=== PATIENT | female | born 1965 | race Caucasian/White ===

== ENCOUNTER 2016-06-28 08:28 | Day surgery (SDC) | payer BC ==
[~2016-06-28 08:28] MED LIST: RINGERS SOLUTION,LACTATED 1,000 ML IV PRN
--- OUTSIDE RECORDS SUMMARY | 2016-06-28 08:31 | XMS REPORT | CCD ---
:1965 Author Name STEVEN LOVELL Address [address], [place] [phone] Care Team Providers Name Role Phone TANYA ZAMORA Attending Physician Unavailable Vital Signs Unknown. Allergies Unknown. Procedures Unknown. History of Immunizations Unknown. Problems Unknown. Results CBC Test Name Code Test Result Test Units Test Date/Time WBC 6690-2 5.3000 K/uL 10/16/2013 08:38 RBC 789-8 4.0200 M/uL 10/16/2013 08:38 HEMOGLOBIN 718-7 12.1000 g/dL 10/16/2013 08:38 HEMATOCRIT 37.0000 % 10/16/2013 08:38 MCV 92.0000 fL 10/16/2013 08:38 MCH 30.1000 PG 10/16/2013 08:38 MCHC 32.7000 G/DL 10/16/2013 08:38 RDW-SD 42.3000 FL 10/16/2013 08:38 RDW-CV 12.8000 % 10/16/2013 08:38 PLATELETS 257.0000 K/UL 10/16/2013 08:38 MPV 9.8000 FL 10/16/2013 08:38 %GRAN 64.8000 % 10/16/2013 08:38 %LYMPH 27.1000 % 10/16/2013 08:38 %MONO 7.0000 % 10/16/2013 08:38 %EOS 0.9000 % 10/16/2013 08:38 %BASO 0.2000 % 10/16/2013 08:38 #GRAN 3.4400 K/UL 10/16/2013 08:38 #LYMPH 1.4400 K/UL 10/16/2013 08:38 #MONO 0.3700 K/UL 10/16/2013 08:38 #EOS 0.0500 K/UL 10/16/2013 08:38 #BASO 0.0100 K/UL 10/16/2013 08:38 SLIDE REVIEWED? NOT INDICATED N/A 10/16/2013 08:38 MANUAL DIFF NOT INDICATED N/A 10/16/2013 08:38 B12 LEVEL, SERUM Test Name Code Test Result Test Units Test Date/Time VITAMIN B12 242.0000 PG/ML 10/16/2013 08:38 TSH Test Name Code Test Result Test Units Test Date/Time TSH 3016-3 1.8860 uIU/ml 10/16/2013 08:38 COMPREHENSIVE METABOLIC PANEL Test Name Code Test Result Test Units Test Date/Time GLUCOSE 101.0000 mg/dL 10/16/2013 08:38 SODIUM 141.0000 mmol/L 10/16/2013 08:38 POTASSIUM 4.0000 mmol/L 10/16/2013 08:38 CHLORIDE 105.0000 mmol/L 10/16/2013 08:38 CO2 30.0000 mmol/L 10/16/2013 08:38 BUN 23.0000 mg/dL 10/16/2013 08:38 CREATININE 0.6000 mg/dL 10/16/2013 08:38 BUN/CREAT 38.3000 10/16/2013 08:38 CALCIUM 8.5000 mg/dL 10/16/2013 08:38 TOTAL BILI 0.7000 mg/dL 10/16/2013 08:38 TOTAL PROTEIN 6.8000 g/dL 10/16/2013 08:38 ALBUMIN 3.7000 g/dL 10/16/2013 08:38 A/G RATIO 1.2000 10/16/2013 08:38 ALKALINE PHOS 88.0000 IU/L 10/16/2013 08:38 AST/SGOT 25.0000 IU/L 10/16/2013 08:38 ALT/SGPT 44.0000 IU/L 10/16/2013 08:38 ANION GAP 10.2000 mmol/L 10/16/2013 08:38 AGE 48.0000 YEARS 10/16/2013 08:38 GFR 113.8900 ml/min 10/16/2013 08:38 T4 THYROXINE TOTAL Test Name Code Test Result Test Units Test Date/Time T4, TOTAL 5.8000 MCG/DL 10/16/2013 08:38 Medications Unknown. Medications Administered Unknown. Encounters Encounter Diagnosis Diagnosis Code Start Date PAIN IN LIMB 7295 10/16/2013 Social History Smoking Status Code Start Date End Date Never smoker [id number] Patient Decision Aids Unknown. Discharge Instructions You were admitted to [facility] on 10/16/2013 with a principle diagnosis of PAIN IN LIMB. You had the following tests done:VITAMIN B12T4, TOTAL You were discharged from [facility] on 10/16/2013. Should you have any questions prior to discharge, please contact a member of your healthcare team. If you have left the hospital and have any questions, please contact your primary care physician. Chief Complaint and Reason For Visit Unknown. Function Status Unknown. Plan of Care Diagnostic Test Pending Plan of Care Pending Diagnostic Test PROTEIN ELECTROPHORESIS, SERUM, [LOINC: 06713-5], 10/16/2013 T3, [LOINC: 3053-6], 10/16/2013 EVELIA, [LOINC: 8061-4], 10/16/2013 Referral/Transition of Care Unknown.
--- OUTSIDE RECORDS SUMMARY | 2016-06-28 08:31 | XMS REPORT | CCD ---
:1965 Author Name STEVEN LOVELL Address [address] Unavailable [place], [place] [phone] Care Team Providers Name Role Phone LAN SEGURA Attending Physician Unavailable Vital Signs Unknown or Not Available. Allergies Unknown or Not Available. Procedures Unknown or Not Available. History of Immunizations Unknown or Not Available. Problems Unknown or Not Available. Results POTASSIUM, SERUM OR PLASMA - Collect Date/Time: 04/09/2015 08:35 Test Name Code Test Result Test Units Test Ref Range POTASSIUM 4.2 mmol/L L=3.5 H=5.1 Active Medications Unknown or Not Available. Medications Administered During Visit Unknown or Not Available. Encounters Encounter Diagnosis Diagnosis Code Start Date Hypokalemia [id number] 04/09/2015 Social History Smoking Status Code Start Date End Date Never smoker [id number] Patient Decision Aids Unknown or Not Available. Discharge Instructions You were admitted to [facility] on 04/09/2015 with a principal diagnosis of Hypokalemia . You were discharged from [facility] on 04/09/2015. Should you have any questions prior to discharge, please contact a member of your healthcare team. If you have left the hospital and have any questions, please contact your primary care physician. Chief Complaint and Reason For Visit Unknown or Not Available. Function Status Unknown or Not Available. Plan of Care Unknown or Not Available. Referral/Transition of Care Unknown or Not Available.
--- OUTSIDE RECORDS SUMMARY | 2016-06-28 08:31 | XMS REPORT | CCD ---
:1965 Author Name STEVEN LOVELL Address [address], [place] [phone] Care Team Providers Name Role Phone LAN NICE Attending Physician Unavailable Vital Signs Unknown. Allergies Unknown. Procedures Unknown. History of Immunizations Unknown. Problems Unknown. Results SED RATE Test Name Code Test Result Test Units Test Date/Time SED RATE 33.0000 mm/HR 07/09/2013 11:53 HEPATIC FUNCTION PANEL Test Name Code Test Result Test Units Test Date/Time TOTAL BILI 0.3000 mg/dL 07/09/2013 11:53 DIRECT BILI 0.1000 mg/dL 07/09/2013 11:53 TOTAL PROTEIN 7.2000 g/dL 07/09/2013 11:53 ALBUMIN 3.8000 g/dL 07/09/2013 11:53 A/G RATIO 1.1000 07/09/2013 11:53 ALKALINE PHOS 131.0000 IU/L 07/09/2013 11:53 AST/SGOT 18.0000 IU/L 07/09/2013 11:53 ALT/SGPT 32.0000 IU/L 07/09/2013 11:53 Medications Unknown. Medications Administered Unknown. Encounters Encounter Diagnosis Diagnosis Code Start Date JOINT PAIN-UNSPEC 41495 07/09/2013 Social History Smoking Status Code Start Date End Date Never smoker [id number] Patient Decision Aids Unknown. Instructions You were admitted to [facility] on 07/09/2013 with a principle diagnosis of JOINT PAIN-UNSPEC. You were discharged from [facility] on 07/09/2013. Should you have any questions prior to discharge, please contact a member of your healthcare team. If you have left the hospital and have any questions, please contact your primary care physician. Chief Complaint and Reason For Visit Unknown. Function Status Unknown. Plan of Care Unknown. Referral/Transition of Care Unknown.
--- OUTSIDE RECORDS SUMMARY | 2016-06-28 08:31 | XMS REPORT | Continuity of Care Document ---
:1965 Demographics Phone Unavailable Preferred Language Unknown Marital Status Unknown Jain Affiliation Unknown Race Unknown Ethnic Group Unknown Author Organization [facility] ([facility]) [place] [address] Phone [phone] Care Team Providers Name Role Phone Unavailable Primary Care Provider Unavailable Source Comments This disclosure is being made pursuant to the Care Everywhere program, applicable federal and state laws, and may not contain all informaitonavailable regarding this patient.[facility] ([facility]) Active Allergies and Adverse Reactions Not on File Current Medications Not on file Active Problems Not on file Social History Tobacco Use Types Packs/Day Years Used Date Never Assessed Plan of Care Health Maintenance Due Date Last Done Comments Hepatitis B Vaccine (1 of 3 - Primary Series) 1965 Tdap Vaccine 1977 Lipid Disorder Screening 1984 MMR Vaccine 1984 Td Vaccine 1984 Cervical Cancer Screening 1996 Mammogram 2006 Influenza Vaccine: Seasonal (#1) 12/20/2015 Colonoscopy 03/19/2016 Results from Last 3 Months Not on file
--- OUTSIDE RECORDS SUMMARY | 2016-06-28 08:32 | XMS REPORT | CCD ---
:1965 Author Name STEVEN LOVELL Address [address], [place] [phone] Care Team Providers Name Role Phone LAN SEGURA Attending Physician Unavailable Vital Signs Unknown or Not Available. Allergies Unknown or Not Available. Procedures Procedure Code Procedure Type Date TSH 14856934 SNOMED CT 04/06/2016 LIPID PANEL [id number] SNOMED [address] 04/06/2016 History of Immunizations Unknown or Not Available. Problems Unknown or Not Available. Results COMPREHENSIVE METABOLIC PANEL - Collect Date/Time: 04/06/2016 09:41 Test Name Code Test Result Test Units Test Ref Range GLUCOSE 93 mg/dL L=74 H=106 SODIUM 145 mmol/L L=136 H=145 POTASSIUM 4.0 mmol/L L=3.5 H=5.1 CHLORIDE 106 mmol/L L=98 H=107 CO2 29 mmol/L L=21 H=32 BUN 15.0 mg/dL L=7.0 H=18.0 CREATININE 0.6 mg/dL L=0.6 H=1.0 BUN/CREAT 25.0 L=7.6 H=21.2 CALCIUM 9.1 mg/dL L=8.6 H=10.1 TOTAL BILI 1.1 mg/dL L=0.2 H=1.0 TOTAL PROTEIN 7.4 g/dL L=6.4 H=8.2 ALBUMIN 4.0 g/dL L=3.4 H=5.0 A/G RATIO 1.2 ALKALINE PHOS 79 IU/L L=50 H=136 AST/SGOT 19 IU/L L=15 H=37 ALT/SGPT 24 IU/L L=12 H=78 ANION GAP 14.0 mmol/L L=7.0 H=16.0 AGE 51 YEARS GFR 112.47 ml/min LIPID PANEL - Collect Date/Time: 04/06/2016 09:41 Test Name Code Test Result Test Units Test Ref Range CHOLESTEROL 2093-3 145 mg/dL L=0 H=200 TRIGLYCERIDES 2571-8 48 mg/dL L=0 H=200 HDL 2085-9 51 mg/dL L=40 H=60 LDL 2089-1 84 mg/dL L=0 H=160 CHOL/HDL 9830-1 2.8 L=0.0 H=6.7 TSH - Collect Date/Time: 04/06/2016 09:41 Test Name Code Test Result Test Units Test Ref Range TSH 3016-3 0.873 uIU/ml L=0.360 H=3.740 CBC W/DIFF - Collect Date/Time: 04/06/2016 09:41 Test Name Code Test Result Test Units Test Ref Range WBC 6690-2 5.4 K/uL L=3.2 H=10.0 RBC 789-8 4.78 M/uL L=4.00 H=5.20 HEMOGLOBIN 718-7 14.0 g/dL L=12.1 H=15.6 HEMATOCRIT 41.9 % L=35.0 H=47.0 MCV 87.7 fL L=81.0 H=101 MCH 29.3 PG L=26.0 H=38.0 MCHC 33.4 G/DL L=31.0 H=37.0 RDW-SD 39.7 FL L=37.0 H=54.0 RDW-CV 12.4 % L=11.0 H=16.0 PLATELETS 777-3 211 K/UL L=140 H=380 MPV 9.9 FL L=9.0 H=13.0 %GRAN 55.0 % L=0.0 H=75.0 %LYMPH 34.9 % L=0.0 H=50.0 %MONO 8.7 % L=0.0 H=14.0 %EOS 0.4 % L=0.0 H=6.0 %BASO 0.6 % L=0.0 H=1.0 #GRAN 2.96 K/UL L=1.80 H=7.80 #LYMPH 1.88 K/UL L=0.30 H=4.00 #MONO 0.47 K/UL L=0.00 H=0.70 #EOS 0.02 K/UL L=0.00 H=0.40 #BASO 0.03 K/UL L=0.00 H=0.10 SLIDE REVIEWED? NOT INDICATED N/A MANUAL DIFF NOT INDICATED N/A Active Medications Unknown or Not Available. Medications Administered During Visit Unknown or Not Available. Encounters Encounter Diagnosis Diagnosis Code Start Date Fatigue [id number] 04/06/2016 Social History Smoking Status Code Start Date End Date Never smoker [id number] Patient Decision Aids Unknown or Not Available. Discharge Instructions You were admitted to [facility] on 04/06/2016 09:29 with a principal diagnosis of Other fatigue You had the following tests done:CBC W/DIFFCOMPREHENSIVE METABOLIC PANELLIPID PANELTSH You were discharged from [facility] on 04/06/2016 09:29 Should you have any questions prior to [...]
[2016-06-28] MEDS ORDERED: RINGERS SOLUTION,LACTATED 1,000 ML IV ONE ×4 (09:02→16:25)
[2016-06-28 18:36] VITALS: BP 110/62
--- NOTE | 2016-06-29 09:13 | OR ---
Operative Report - Dictated Report Narrative: OPERATIVE REPORT (This is the FIRST of two colonoscopies on this day) DATE OF OPERATION: 06/28/2016 PREOPERATIVE DIAGNOSIS: No prior dedicated colon studies POSTOPERATIVE DIAGNOSIS: Poor prep, incomplete/aborted exam OPERATION: Attempted Colonoscopy SURGEON: Gregory Dhillon MD ANESTHESIA: KYLIE Souza CRNA INDICATIONS FOR PROCEDURE: The patient is a 51-year-old female referred by Dr Oneill for initial colon screening. There is no family history of colon cancer. The patient reports very irregular bowel habit. FINDINGS: Inadequate prep for diagnostic exam NARRATIVE OF PROCEDURE: The patient was identified in the holding area, and prior to the administration of anesthetic, a multidisciplinary timeout was observed. With the patient in the left lateral position and after the administration of intravenous sedation, the perineum was inspected. There was no evidence of pilonidal disease or skin breakdown. The external appearance of the anus was normal. Sphincter tone was good. The flexible fiberoptic colonoscope was inserted into the rectum which was insufflated with air. Immediately apparent was a large amount of liquid and particulate stool coating the rectum. This was lavaged and suctioned until the scope could be advanced proximally. The scope was gradually advanced to approximately 60 cm through a very redundant colon. It was apparent that a diagnostic quality exam could not be accomplished due to the amount of residual stool. The scope was therefore gradually withdrawn to the level of the rectum. As much insufflated air as possible was removed. The scope was withdrawn from the patient and the procedure terminated. The patient tolerated the anesthetic and procedure well without complication and was transferred back to the ambulatory surgery area awake and in stable condition. The patient will be given an additional Suprep prep kit, then kept at NPO status , and be returned for colonoscopy later today Reviewed and electronically signed
--- NOTE | 2016-06-29 10:14 | OR ---
Operative Report - Dictated Report Narrative: OPERATIVE REPORT (This is the SECOND of two colonoscopy reports on this date ) DATE OF OPERATION: 06/28/2016 PREOPERATIVE DIAGNOSIS: No prior dedicated colon studies. Incomplete exam earlier today due to poor prep POSTOPERATIVE DIAGNOSIS: 0.5 cm polyp at 15 cm. (Pathology pending) Very redundant colon with exam accomplished only to 160 cm length of scope OPERATION: Colonoscopy to 160 cm. Snare polypectomy at 15 cm SURGEON: Gregory Dhillon MD ANESTHESIA: KYLIE Souza CRNA INDICATIONS FOR PROCEDURE: The patient is a 51-year-old female referred for initial colon screening by Dr Oneill. The patient underwent a usual Suprep colon preparation, however when brought for exam this morning was found to be inadequately prepped for diagnostic exam. She has had administration of an additional dose of Suprep, has been kept nothing by mouth for suitable time, and is brought for repeat exam. FINDINGS: Adequate prep. 0.5 cm polyp at 15 cm (pathology pending). Very redundant and capacious colon with exam only accomplished to the full 160 cm length of examining scope. NARRATIVE OF PROCEDURE: The patient was identified in the holding area, and prior to the administration of anesthetic, a multidisciplinary timeout was observed. With the patient in the left lateral position and after the administration of intravenous sedation, the perineum was inspected. There was no evidence of pilonidal disease or skin breakdown. The external appearance of the anus was normal. Sphincter tone was good. The flexible fiberoptic colonoscope was inserted into the rectum which was insufflated with air. The rectal mucosa and submucosal vascular pattern appeared normal, the prep was seen to be sufficient for diagnostic purposes although there was some residual liquid. At 15 cm a 0.5 cm polyp was encountered this was removed with the cautery snare and submitted to pathology. The site was seen to be complete and hemostatic. The scope was advanced through a very tortuous and capacious colon to the full 160 cm length of the colonoscope. At this juncture a long stretch of normal-appearing colon was visible proximally, however even by palpation it could not be determined whether this was the proximal transverse colon or ascending colon. The scope was withdrawn and readvanced with the use of standard reduction maneuvers and external manual compression on the abdomen, however after multiple attempts further proximal progress could not be accomplished. The scope was then slowly withdrawn in a circular fashion so that all aspects of colonic mucosa distal to this level were inspected. The colon was extremely redundant and capacious. The haustral architecture appeared well preserved throughout with no evidence of external compression. The mucosa and submucosal vascular pattern appeared normal, specifically there was no gross evidence to suggest colitis or inflammatory bowel disease and no AV malformations were seen. No diverticulosis was demonstrated. Aside from the polyp at 15 cm, no additional polyps were encountered. The scope was gradually withdrawn to the level of the rectum. As much insufflated air as possible was removed. The scope was withdrawn from the patient and the procedure terminated. The patient tolerated the anesthetic and procedure well without complication and was transferred back to the ambulatory surgery area awake and in stable condition. The patient remained stable throughout a period of postoperative observation. She denied abdominal discomfort, was able to tolerate by mouth intake, and was up without assistance. I shared the operative findings with the patient and she was given copies of the photographs which appear in the medical record. She was discharged home with instructions not to engage in hazardous activity today, but may resume normal activity tomorrow, and advance diet as tolerated. She is to continue those medications as listed in the history and physical exam. I made arrangements to contact her with the biopsy reports and will make additional recommendations for treatment and follow-up based upon those results. ADDENDUM: I explained that because the proximal colon was not directly visualized, she should, after healing of the polypectomy site, undergo a completion barium enema to complete the evaluation of the proximal colon Reviewed and electronically signed
== END 2016-06-28 08:29 | disposition home or self-care (01) ==
LOC: AMB 08:28
PROVIDERS: ATTEND Surgery
PROC: 0DJD8ZZ Inspection of Lower Intestinal Tract, Via Natural or Artificial Opening Endoscopic (ICD-10-PCS; 2016-06-28)
PROC: 0DBE8ZX Excision of Large Intestine, Via Natural or Artificial Opening Endoscopic, Diagnostic (ICD-10-PCS; principal; 2016-06-28 10:00)
DX: Z12.11 Encounter for screening for malignant neoplasm of colon (principal); K63.5 Polyp of colon; I10 Essential (primary) hypertension; Z68.33 Body mass index [BMI] 33.0-33.9, adult

== ENCOUNTER 2016-09-12 07:53 | Day surgery (SDC) | payer BC ==
--- OUTSIDE RECORDS SUMMARY | 2016-09-12 07:56 | XMS REPORT | Continuity of Care Document ---
:1965 Demographics Phone Unavailable Preferred Language Unknown Marital Status Unknown Quaker Affiliation Unknown Race Unknown Ethnic Group Unknown Author Organization [facility] ([facility]) [place] [address] Phone [phone] Care Team Providers Name Role Phone Unavailable Primary Care Provider Unavailable Source Comments This disclosure is being made pursuant to the Care Everywhere program, applicable federal and state laws, and may not contain all informaitonavailable regarding this patient.[facility] ([facility]) Active Allergies and Adverse Reactions Not on [...]
--- OUTSIDE RECORDS SUMMARY | 2016-09-12 07:56 | XMS REPORT | CCD ---
:1965 Author Name STEVEN LOVELL Address [address] [facility] [place] [address] Care Team Providers Name Role Phone NAKUL KELLY Attending Physician Unavailable Allergies Unknown or Not Available. Active Medications Unknown or Not Available. Problems Unknown or Not Available. Procedures Procedure Code Procedure Type Date CULTURE ANTIGEN BACKUP [id number] SNOMED CT 08/26/2016 Results CULTURE ANTIGEN BACKUP - Collect Date/Time: 08/26/2016 11:27 Test Name Code Test Result Test Units Test Ref Range ON TREATMENT? 585-0 UNKNOWN N/A NOTIFY ED 585-0 NO N/A Encounters Encounter Diagnosis Diagnosis Code Start Date Acute pharyngitis [id number] 08/26/2016 Function Status Unknown or Not Available. History of Immunizations Unknown or Not Available. Plan of Treatment Unknown or Not Available. Social History Smoking Status Code Start Date End Date Never smoker [id number] Vital Signs Unknown or Not Available. Function Status Unknown or Not Available. Goals Unknown or Not Available. ASSESSMENTS Unknown or Not Available. Health Concerns Section Unknown or Not Available.
[2016-09-12] MEDS ORDERED: RINGERS SOLUTION,LACTATED 1,000 ML IV ONE (08:16)
[2016-09-12 08:34] LABS: Hematocrit 40.5 % (37.0-47.0); Mean Cell Volume 92.7 fl (78-100); Mean Corpuscular Hemoglobin 29.7 pg (27-31); Mean Corpuscular Hgb Conc 32.1 g/dl (32-36); Mean Platelet Volume 9.5 fl (6.0-9.5); Neutrophil # 4.4 K/mm3 (1.3-6.0); Platelet Count 218 K/mm3 (150-450); Red Blood Count 4.37 M/mm3 (4.2-5.4); Red Cell Distribution Width 13.5 % (11.5-14.0); White Blood Count 6.8 K/mm3 (4.0-10.5)
[2016-09-12] MEDS ORDERED: IBUPROFEN 600 MG TABLET PO PRN (09:32)
[2016-09-12] MEDS ORDERED: oxyCODONE HCL/ACETAMINOPHEN 1 TAB TABLET PO PRN (09:32)
--- NOTE | 2016-09-12 09:49 | OR ---
Operative Report - Dictated Report Narrative: Operative Report 09/12/16 Hysteroscopy Preoperative Diagnosis: Postmenopausal Bleeding Postoperative Diagnosis: Postmenopausal Bleeding, Cervical Stenosis Procedure: Hysteroscopy Surgeon: Charito Liu M.D. Anesthesia: Uday Cabral CRNA, IV sedation Findings: Unable to pass uterine sound due to cervical stenosis. Unable to perform dilatation and curettage due to inability to fully assess the cavity. The hysteroscope was to the extreme left of the patient and only one ostia could be visualized. Therefore, a full assessment of the cavity could not be made to ensure curettage would be safe. Fluids: 150 ml EBL: Minimal Drains: None Complications: None Condition: Stable Pathology: None Procedure: The patient was taken to the operating room with IV fluids running. She was placed in the dorsal lithotomy position after anesthesia was induced. A bivalve speculum was placed in the vagina. The anterior lip of the cervix was grasped with a single-tooth tenaculum. Attempt was made to pass uterine sound and was unsuccessful. 2.5 mm hysteroscope was used to navigate through the stenotic cervix as well as to dilate the endocervical canal. The cervix was very stenotic. A portion of the endometrial cavity was visualized and a tubal ostia was visualized but it was not an entire endometrial cavity. At that point hysteroscope was sounded to approximately 8 cm. Ultrasound report reviewed. The endometrial cavity was to the extreme left. Hysteroscopy was discontinued as I was unable to safely curettage the cavity and fully assess the endometrial cavity as there was either scarring on the lining of the cavity making it unable to fully assess or there was a submucosal fibroid obstructing the internal cervical os not allowing for complete visualization of the lining. Sampling was not performed. The hysteroscope was removed. The single- tooth tenaculum was removed. Sites were hemostatic. The speculum was removed from the vagina. Sponge counts were correct 2. The patient tolerated the procedure well.
[2016-09-12 11:14] VITALS: BP 115/66
== END 2016-09-12 07:54 | disposition home or self-care (01) ==
LOC: AMB 07:53
PROVIDERS: ATTEND Obstetrics & Gynecology
PROC: 0UJD8ZZ Inspection of Uterus and Cervix, Via Natural or Artificial Opening Endoscopic (ICD-10-PCS; principal; 2016-09-12 09:00)
DX: N88.2 Stricture and stenosis of cervix uteri (principal); N95.0 Postmenopausal bleeding; I10 Essential (primary) hypertension; G47.30 Sleep apnea, unspecified; Z68.32 Body mass index [BMI] 32.0-32.9, adult